=== PATIENT | female | born 1935 | race Caucasian/White ===

== ENCOUNTER 2016-05-26 19:55 | Inpatient (IN) | payer MEDICARE, OTHER ==
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
--- NOTE | ~2016-05-26 | DS ---
Discharge Summary [address] [address] NAME: MARCIN LANDEROS : 37 STATUS : DIS IN PAT#: [id number] AGE: 80 ADM/REG DATE : 05/27/16 MR#: [id number] REPORT SERV DATE: 06/04/16 DICTATED BY: RANDAL WRIGHT DATE: 06/03/16 REPORT STATUS : Draft TRANSCRIBED BY: MODMorris DATE: 06/03/16 ADMISSION DATE: 05/27/2016 DISCHARGE DATE: 06/03/2016 DISCHARGE DIAGNOSES: 1. Symptomatic Escherichia coli urinary tract infection. 2. Recurrent urinary tract infections. 3. Voiding dysfunction. 4. Possible normal pressure hydrocephalus. Further Urology outpatient evaluation to be completed. 5. Chronic diarrhea, not evident while hospitalized. 6. Chronic obstructive pulmonary disease. 7. Sleep apnea. 8. Cough. Probably multifactorial related to oropharyngeal dysphagia, gastroesophageal reflux, and chronic obstructive pulmonary disease. 9. Hypothyroid, on replacement. 10.Mild leukopenia. 11.Chronic anemia. 12.Variable thrombocytopenia. 13.Hyperlipidemia. 14.B12 deficiency, on replacement. 15.Symptomatic axial osteoarthritis. 16.Anxiety and depression, on SSRI therapy. 17.Asymptomatic diverticulosis. 18.Asymptomatic cholelithiasis. 19.Dry eye syndrome. OPERATIONS AND PROCEDURES: None. PRESENT ILLNESS: This is a 80-year-old white female, who was triaged in the emergency room on 05/26/2016 at 1955 hours with complaints of chest pain, weakness, bladder infection, diarrhea, and cough. Her admission vital signs, blood pressure 118/70, temp 97, pulse 65, respirations 16, and O2 saturation 96%. In the emergency room, she was found to have an abnormal urinalysis consistent with urinary tract infection. She was referred to the Hospitalist Service for further evaluation and admission. She was seen by Dr. Tyler Mujica and admitted as described on admission history and physical examination. ADDITIONAL HISTORY: Per Dr. Mujica. PHYSICAL EXAMINATION: Per Dr. Mujica. ADMISSION LABORATORY: Per Dr. Mujica. Discharge Summary [address] [place]. [address] NAME: MARCIN LANDEROS : 37 STATUS : DIS IN PAT#: [id number] AGE: 80 ADM/REG DATE : 05/27/16 MR#: [id number] REPORT SERV DATE: 06/04/16 DICTATED BY: RANDAL WRIGHT DATE: 06/03/16 REPORT STATUS : Draft TRANSCRIBED BY: JHONATAN DATE: 06/03/16 HOSPITAL COURSE: She was admitted by Dr. Mujica with assessment of one urinary tract infection in the setting of the above-mentioned comorbidities. Her hospitalist care was assumed by Dr. Marshall. Her hospitalist care from admission through 05/31/2016 is as outlined on the interim summary dictated by Dr. Marshall. During her hospitalization, she had consultations with Dr. Vlad Madera. His impression was recurrent urinary tract infections with ongoing symptoms of frequency, urgency, incontinence, and dysuria and previous cultures growing E. coli. Antimicrobial therapy was outlined. She was seen in consultation by Dr. Hector Chen. His impression was recurrent urinary tract infections in the setting of some voiding dysfunction with a normal upper tract. He felt that long courses of antibiotics had altered her vaginal elijah and recommended some Estrace cream, vitamin C, and sensitivity-directed antimicrobial therapy. She had a CT scan of her brain during her evaluation. She had large ventricles. She was seen by Dr. Huerta to evaluate normal pressure hydrocephalus. An MRI of her brain showed marked enlargement of the lateral and third ventricles unchanged from CT of 05/27/2016. There was moderate periventricular and subcortical leukoencephalopathy. An MRA of her neck was negative. Further urology outpatient evaluation and treatment was recommended. She was seen by Physical Therapy and Occupational Therapy. Rehab was recommended. She was initially seen by the undersigned after the above-mentioned evaluations on 06/01/2016, 06/02/2016, and 06/03/2016. At that time, her discharge was pending rehab approval and availability. She was approved for [facility] and was thought to be stable for transfer today. Today, she had a prolonged coughing episode after breakfast. She reported this happens not infrequently. A modified barium swallow study was done. No aspiration was seen, but one episode of flash penetration was seen with the first swallow. There was also mild delay and mild residue, but she was able to protect her airway. She was given additional bronchodilator therapy with improvement in her cough and was stable at the time of discharge. She is being discharged to [facility]. Her followup care will be with Dr. Singh. DISCHARGE MEDICATIONS: Pending followup; Coreg 3.125 mg twice daily, Duricef 1000 mg twice daily for 10 further days, B12 at 1000 mcg daily, Restasis eye drops twice daily, Zetia 10 mg daily, Estrace vaginal cream every two days, Zantac 150 mg before breakfast and supper, hydrochlorothiazide 12.5 mg daily, levothyroxine 25 mcg daily, multivitamin daily, omeprazole 20 mg before breakfast and supper, Altace 2.5 mg daily, Zoloft 100 mg daily, Zocor 40 mg daily, Mylanta every 4 hours as needed, Tessalon 100 mg three times daily as Discharge Summary [id number] [place]. [address] NAME: MARCIN LANDEROS : 37 STATUS : DIS IN PAT#: [id number] AGE: 80 ADM/REG DATE : 05/27/16 MR#: [id number] REPORT SERV DATE: 06/04/16 DICTATED BY: RANDAL WRIGHT DATE: 06/03/16 REPORT STATUS : Draft TRANSCRIBED BY: JHONATAN DATE: 06/03/16 needed, Voltaren gel to symptomatic axial OA sites daily as needed, Flonase nasal spray daily, guaifenesin 600 mg every 12 hours, [place] 5/325 twice daily as needed, Zofran 4 mg p.o. or sublingually every 4 hours as needed, MiraLAX 17 g plus Senokot 2 at bedtime as needed, phenazopyridine three times daily as needed, Klonopin 1 mg at bedtime reduced from three times daily, Lasix 20 mg daily as needed, PreserVision one cap twice daily, fish oil 1000 mg daily; Breo Ellipta one puff daily, GenTeal drops twice daily, albuterol nebs every 4 hours as needed. Discharge time greater than 30 minutes. DD/MODL Randal Wright M.D. / [id number] CC: Ness Trammell M.D. [facility]
--- NOTE | ~2016-05-26 | IDS ---
Interim Discharge Summary [facility] [address] [place]. [address] NAME: MARCIN LANDEROS : 37 STATUS : ADM IN [facility]#: [id number] AGE: 80 ADM/REG DATE : 05/27/16 MR#: [id number] REPORT SERV DATE: 05/31/16 DICTATED BY: JOANNEALEXYS ANAYA DATE: 05/31/16 REPORT STATUS : Draft TRANSCRIBED BY: MODL DATE: 05/31/16 ADMISSION DATE: 05/27/2016 DISCHARGE DATE: WORKING DIAGNOSES: 1. Recurrent Escherichia coli urinary tract infection. 2. Urinary incontinence, intermittent. 3. Diarrhea, chronic, but been controlled since admission. 4. Question normal pressure hydrocephalus. 5. Generalized weakness. 6. Hypertension. 7. Cough. CONSULTANTS: 1. Infectious Disease. 2. Urology. 3. Neurology. PROCEDURES: None. HOSPITAL COURSE: This is a 80-year-old lady who was admitted to the hospital with recurrent E. coli urinary tract infections. For details, please refer to excellent H and P by Dr. Mujica. In summary, the patient was admitted and was started on IV Rocephin empirically. Infectious Disease has been involved in her care who suggested getting Urology involved. Dr. Chen of Urology saw the patient and he felt that she did not need any intervention at this time other than use of estrogen cream to restore normal vaginal pH. In the meantime, the urine cultures did come back for E. coli that was sensitive to Ancef. The patient has remained on IV Rocephin over the weekend and it is now being switched to cefadroxil per ID's recommendation. Due to the patient having had complaints of intermittent urinary incontinence along with ataxia and confusions and some headache, possibility of underlying normal-pressure hydrocephalus was raised. CT of the head was performed and it showed ventricular enlargement out of proportion to sulci. Neurology was thus consulted and Neurology recommended getting an MRI of the brain. The MRI of the brain showed marked enlargement of the lateral and third ventricles unchanged from the CT exam. It also showed moderate periventricular and subcortical leukoencephalopathy. Neurology recommended outpatient followup for her symptoms as well as the rehab. In determining disposition, the patient was seen by Physical Therapy who actually recommended a discharge to detention facility. The patient is currently medically ready for discharge and we are awaiting a placement to detention facility with the help of Case Management. Last couple of days, the patient has been complaining of cough. Chest x-ray and lab work was benign, and thus, the patient is being treated symptomatically for her cough at this point in time. Otherwise, no other acute issues. Interim Discharge Summary [address] [place]. [address] NAME: MARCIN LANDEROS : 37 STATUS : ADM IN [facility]#: [id number] AGE: 80 ADM/REG DATE : 05/27/16 MR#: [id number] REPORT SERV DATE: 05/31/16 DICTATED BY: ALEXYS RUBIO DATE: 05/31/16 REPORT STATUS : Draft TRANSCRIBED BY: JHONATAN DATE: 05/31/16 [facility]JH[place] Alexys Rubio MD / [id number] CC: MD Isauro Sears M.D.
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
--- NOTE | ~2016-05-26 | CN ---
Consultation Report [facility] [address] [place]. [address] NAME: MARCIN LANDEROS : 39 STATUS : ADM Daisy PAT#: [id number] AGE: 80 ADM/REG DATE : 05/26/16 MR#: [id number] REPORT SERV DATE: 05/28/16 DICTATED BY: HECTOR LUNA III DATE: 05/27/16 REPORT STATUS : Draft TRANSCRIBED BY: JHONATAN DATE: 05/27/16 CONSULTATION DATE OF CONSULTATION: REASON FOR CONSULT: Recurrent UTIs. HISTORY OF PRESENT ILLNESS: The patient is a 80-year-old white female, I have seen once approximately a month ago. She has a history of recurrent UTIs, E. coli, and enterococcus. When I saw her, she had stated that since October she had been treated with eight or nine different antibiotics and continued to be symptomatic. Her symptoms on admission and in the office was suprapubic pressure frequency and dysuria. She has had no fever and no flank pain. There is no history of stones. She is not sexually active. She denies any surgery in the past. She also has significant urge incontinence that is worse with UTIs. On this admission, it was noted by the daughter that she has had some diarrhea and some confusion. The patient does not recall any of this. According to the notes in the chart, apparently her sister has C. difficile, and I believe a C. difficile study is pending. My recommendations to her in the office on earlier this year included Estrace cream for her vaginal atrophy. This was to help reestablish the Lactobacillus and the pH of the vagina since most of these infections are rectal, vaginal, and bladder. Unfortunately, she did not get the prescription filled. When she was in the office, her postvoid residual was only about 10 mL. The last few mL were grossly purulent. A culture approximately a month before the visit revealed an E. coli sensitive to Macrodantin, cefazolin, aztreonam, piperacillin, and amikacin. PAST MEDICAL HISTORY: Includes COPD, fibromyalgia, and hypertension. She has had hysterectomy. She did have a bladder repair 50 years ago. This was a cystocele and rectocele repair. She has also had a hip repair, vein stripping, and D and C. MEDICATIONS: Reviewed on the chart. ALLERGIES: MORPHINE, MACROBID, PENICILLIN, LEVAQUIN WHICH CAUSES INSOMNIA, AND SEPTRA WHICH CAUSES GI UPSET. SOCIAL HISTORY: Reveals no alcohol or tobacco. FAMILY HISTORY: Positive for heart disease and diabetes. PHYSICAL EXAMINATION: GENERAL: She is alert and oriented. VITAL SIGNS: Pulse was 70, she was afebrile, and blood pressure was 166/70. GENERAL: She is alert, oriented, and eating dinner. HEENT: Unremarkable. NECK: Supple. Consultation Report [address] [place]. [address] NAME: MARCIN LANDEROS : 39 STATUS : ADM Daisy PAT#: [id number] AGE: 80 ADM/REG DATE : 05/26/16 MR#: [id number] REPORT SERV DATE: 05/28/16 DICTATED BY: HECTOR LUNA III DATE: 05/27/16 REPORT STATUS : Draft TRANSCRIBED BY: JHONATAN DATE: 05/27/16 LUNGS: Lung de la cruz were examined and noted to be clear. HEART: Regular rate and rhythm without murmur or gallop. ABDOMEN: Soft. Bowel sounds present and active. There is mild suprapubic tenderness. PELVIC: I did her pelvic exam within the last couple of months and so this was deferred. EXTREMITIES: There is no pedal edema. LABORATORY DATA: Included very inflammatory urine. Electrolytes were normal. White count was 3.8 and hemoglobin was 9.6. Urine culture from 05/05/2016 was an E. coli very similar to the one in January. IMPRESSION: Recurrent urinary tract infections. She is emptying her bladder. There are no upper tract structural issues. She had a normal abdominal and pelvic CT in November. I suspect her problem is one of recurrent infections treated with long courses of antibiotics that have essentially wiped out her vaginal elijah. We did have this discussion in the office about restoring the normal bacterial elijah in the vaginal area. However, I think the patient went to a Pharmacy to purchase Estrace rather than have a compounded. At this point, she will need to be treated probably with IV antibiotics. I would like to have place her on 60 days of nitrofurantoin or Septra; however, she has a number of allergies that include both of these medications. Another option would be Mandelamine as a urinary antiseptic. In addition, urinary acidification with vitamin C may be of some help. I will go ahead and order the estrogen cream and vitamin C for her, and we will await the culture of the current infection. Thank you for the consult. OB/MODL Hector Luna III, M.D. / [id number] CC: MD Isauro Sears M.D.
--- NOTE | ~2016-05-26 | CN ---
Consultation Report [facility] [address] [place]. [address] NAME: MARCIN LANDEROS : 39 STATUS : ADM Daisy PAT#: [id number] AGE: 80 ADM/REG DATE : 05/26/16 MR#: [id number] REPORT SERV DATE: 05/27/16 DICTATED BY: NILE MADERA DATE: 05/27/16 REPORT STATUS : Draft TRANSCRIBED BY: MODL DATE: 05/27/16 INFECTIOUS DISEASE CONSULT DATE OF CONSULTATION: 05/27/2016 REFERRING PHYSICIAN: Dr. Mujica. REASON FOR CONSULTATION: Recurrent UTIs along with recent diarrhea. HISTORY OF PRESENT ILLNESS: This is a 80-year-old female with a past medical history notable for various chronic medical conditions as outlined below. She states though that her present trouble really began last October when she had a diarrheal illness and then after that developed a UTI. She says she has been plagued by persistent/recurrent urinary tract infections since then. The patient has taken a number of courses of outpatient antibiotics. The patient has been managed by her primary care physician, Dr. Singh along with being seen by Dr. Chen of Urology. I am not sure of the details of her outpatient evaluation. Most recently, the patient finished her last course of oral antibiotics, which according to the patient's pharmacy, was doxycycline last week she says after about 10 days of treatment. She says it really did not help her symptoms. She continues to have symptoms of urinary frequency, nocturia, urgency, incontinence, and dysuria. She also feels just weak and tired. In addition, earlier this week, she developed some mild loose stools, maybe three bowel movements a day, not watery, without any associated abdominal pain or cramping. She has had no loose stools since her admission to the hospital last night. She was instructed to go to the emergency department, she says, by the primary care office yesterday, where she was found to have a normal white blood cell count, but marked pyuria on urinalysis. Because of the concern though about her recent diarrhea and possible C difficile, she has not yet been started on antibiotics. The patient denies any flank pain or back pain. In reviewing the pharmacy records, she took a course of doxycycline in April and in January and took cephalexin in March. PAST MEDICAL HISTORY: Notable for coronary artery disease, obstructive sleep apnea, allergic rhinitis, anemia, chronic anxiety, arthritis, cataracts, depression, hyperlipidemia, hypertension, hypothyroidism, and osteoarthritis. ALLERGIES: PENICILLIN CAUSED A RASH SOME YEARS AGO. THE PATIENT STATES THAT NITROFURANTOIN ALMOST KILLED HER WITH A SEVERE ACUTE REACTION, BUT DETAILS ARE NOT CLEAR. SHE ALSO IS INTOLERANT APPARENTLY OF BACTRIM AND ALSO CANNOT TAKE LEVOFLOXACIN WHICH CAUSED THE SLEEPING PROBLEMS FOR SOME TIME. MORPHINE CAUSES ITCHING. MEDICATIONS: Outpatient medications are reviewed and include ProAir, Coreg, clonazepam, vitamin B12, Colace, Zetia, Flonase, fluticasone/vilanterol inhaler, furosemide, Wilkinson p.r.n., levothyroxine, multivitamins, naproxen, omega-3 fatty acids, omeprazole, Pyridium, MiraLAX, Altace, ranitidine, Zoloft, Zocor, and other vitamins. Consultation Report [address] [place]. [address] NAME: MARCIN LANDEROS : 39 STATUS : ADM Daisy PAT#: [id number] AGE: 80 ADM/REG DATE : 05/26/16 MR#: [id number] REPORT SERV DATE: 05/27/16 DICTATED BY: NILE MADERA DATE: 05/27/16 REPORT STATUS : Draft TRANSCRIBED BY: JHONATAN DATE: 05/27/16 SOCIAL HISTORY: The patient lives alone. Daughters check on her regularly. Nonsmoker, nondrinker. FAMILY HISTORY: Notable for diabetes and heart disease. REVIEW OF SYSTEMS: As outlined above. In addition, no significant fevers, chills. She does have some forgetfulness at times. She has had some episodic falls over the past few weeks including last weekend in her living room and two weeks ago in her bedroom, where she says she "blacked out." No easy bruising or bleeding. PHYSICAL EXAMINATION: VITAL SIGNS: Patient weighs 83 kg. She is afebrile. Blood pressure 159/67, pulse 61, respiratory rate 14. GENERAL: She is alert, sitting up in a chair. No acute distress. HEAD AND NECK: Extraocular movements intact. The oral cavity shows no thrush. NECK: Supple. LUNGS: Clear to auscultation anteriorly. CARDIAC: Regular rate and rhythm. Normal S1, S2 without murmur, gallop, or rub. ABDOMEN: Shows normoactive bowel sounds. Soft, nondistended, nontender. EXTREMITIES: Without edema. SKIN: Without rash. LABORATORY STUDIES: White blood cell count today 3.8, hemoglobin 9.6, platelets 153. Creatinine 0.90. Albumin 3.2. Liver function tests normal. Urinalysis shows large leukocyte esterase, positive nitrite, greater than 182 white blood cells, many white blood cell clumps. Urine culture from last night is growing greater than 100,000 colonies of a gram-negative romy. Previous urine cultures in April, February, January, November, and October have grown E coli, which is most recently resistant to sulfa, quinolones, and gentamicin. Sensitive to cefazolin with an JOHN of 8. She did grow enterococcus once back in late 12/2015. Blood cultures negative to date. Chest x-ray negative. IMPRESSION: Recurrent urinary tract infections with ongoing symptoms of frequency, urgency, incontinence, and dysuria with many previous cultures growing an Escherichia coli. She had some mild diarrhea earlier this week, but none in the hospital here and I doubt Clostridium difficile. The patient has been evaluated by Dr. Chen of Urology, but I am not sure what the outpatient workup has included. PLAN: 1. Pending the final results of the urine culture from last night, I will begin ceftriaxone. 2. We will ask Dr. Chen to reassess. Consultation Report [address] [place]. [address] NAME: MARCIN LANDEROS : 39 STATUS : ADM Daisy PAT#: [id number] AGE: 80 ADM/REG DATE : 05/26/16 MR#: [id number] REPORT SERV DATE: 05/27/16 DICTATED BY: NILE MADERA DATE: 05/27/16 REPORT STATUS : Draft TRANSCRIBED BY: JHONATAN DATE: 05/27/16 /JHONATAN Nile Madera M.D. / [id number] CC: MD Isauro Sears M.D. Oliver Benton III, M.D.
[~2016-05-26 19:55] MED LIST: CALTRA600D PO; CLEAR EYES OPH; CYANO1000T PO; DSS PO; FISH OIL1200 MG PO; FLUID PILL; KLONO2 PO; KLOR-CON M2020 MEQ PO; L20 PO; LIDODERM T; LORTAB 5 PO; METHOC750B PO; MULTIPLE VIT PO; MULTIVITAMI1 PO; MYLANTA DS OR; NAP500 PO; OTC LAXATIVE PO; PREM625 PO; PRILO PO; PRIN5 PO; RESTASIS OPH; SYN.025B PO; SYN125 PO; VITAMIN B-121000 MC1 SL; ZESTRIL2.5 MG PO; ZETIA PO; ZOCOR40 PO; ZOL100 PO; ZOL50 PO; [UNRECOGNIZED DRUG - REMARK]
[2016-05-26 20:37] LABS: BASOPHILS 0.1 %; BASOPHILS ABSOLUTE 0.01 10/3/uL (0.0-0.16); EOSINOPHILS 1.8 %; EOSINOPHILS ABSOLUTE 0.12 10/3/uL (0.0-0.53); ER CBC TAT 0 Hrs 03 Mins; HEMATOCRIT 29.8 % (36.0-48.0); HEMOGLOBIN 10.2 g/dL (12.0-16.0); IMMATURE GRANULOCYTES 0.3 %; IMMATURE GRANULOCYTES ABSOLUTE 0.02 10/3/uL (0.0-0.11); LYMPHOCYTES 11.7 %; LYMPHOCYTES ABSOLUTE 0.79 10/3/uL (0.67-4.30); MANUAL DIFF NO %; MEAN CORPUS HGB CONC 34.2 g/dL (32.0-36.0); MEAN CORPUSCULAR HEMOGLOB 30.1 pg (26.0-34.0); MEAN CORPUSCULAR VOLUME 87.9 fL (80-100); MEAN PLATELET VOLUME 8.5 fL (9.2-13.0); MONOCYTES 7.1 %; MONOCYTES ABSOLUTE 0.48 10/3/uL (0.21-1.20); NEUTROPHILS ABSOLUTE 5.35 10/3/uL (2.02-8.40); PLATELET COUNT 177 10/3/uL (150-400); RBC DISTRIBUTION WIDTH 14.3 % (12.0-16.0); RED CELL COUNT 3.39 10/6/uL (4.0-5.6); WHITE BLOOD CELLS 6.8 10/3/uL (4.5-10.5)
[2016-05-26 20:45] LABS: PARTIAL THROMBO TIME 25.8 SEC (22.5-37.2); PROTIME (NOT ORD) 13.4 SEC (12.0-14.5)
[2016-05-26 20:56] LABS: BUN (BLOOD UREA NITROGEN) 21 MG/DL (6-23); CALCIUM, SERUM 8.4 MG/DL (8.5-10.4); CHEST PAIN PROFILE TAT 0 Hrs 22 Mins; CHLORIDE, SERUM 104 MMOL/L (96-112); CO2 (CARBON DIOXIDE) 25 MMOL/L (24-34); CREATININE 1.21 MG/DL (0.55-1.02); GFR AFRICAN AMERICAN 50 ML/MIN (>=60); GFR NON AFRICAN AMERICAN 43 ML/MIN (>=60); POTASSIUM, SERUM 4.2 MMOL/L (3.5-5.3); TROPONIN I <0.02 NG/ML (<0.05)
[2016-05-26 20:57] LABS: GLUCOSE, SERUM 110 MG/DL (60-99); SODIUM, SERUM 139 MMOL/L (135-148)
[2016-05-26 22:58] LABS: ASCORBIC ACID (UR NOT ORDER) 40 (NEG); BILIRUBIN, URINE NEGATIVE (NEG); ER URINALYSIS TAT 0 Hrs 07 Mins; KETONE, URINE TRACE MG/DL (NEG); LEUKOCYTE ESTERASE(NOT OR MOD (NEG); NITRITE (URINE) POS (NEG); WBC (NOT ORDERED) (RFLEX) > 182 (0-5)
[2016-05-26] MEDS ORDERED: ALTA2.5 PO (23:52)
[2016-05-26] MEDS ORDERED: KLONO1 PO (23:52)
[2016-05-26] MEDS ORDERED: COREG3 PO (23:52)
[2016-05-26] MEDS ORDERED: VOLTAREN1 % TOP (23:53)
[2016-05-26] MEDS ORDERED: ZETIA PO (23:54)
[2016-05-26] MEDS ORDERED: FLONASE NAS (23:54)
[2016-05-26] MEDS ORDERED: LEVOTHYROXIN25 MCG PO (23:55)
[2016-05-26] MEDS ORDERED: NORCO1 TA1 PO (23:55)
[2016-05-26] MEDS ORDERED: NAP500 PO (23:55)
[2016-05-26] MEDS ORDERED: L20 PO (23:55)
[2016-05-26] MEDS ORDERED: THERGRANM PO (23:55)
[2016-05-26] MEDS ORDERED: RESTASIS OPH (23:56)
[2016-05-26] MEDS ORDERED: ZOL100 PO (23:56)
[2016-05-26] MEDS ORDERED: ZANTAC 150 PO (23:56)
[2016-05-26] MEDS ORDERED: PYR200 PO (23:56)
[2016-05-26] MEDS ORDERED: PRESERVISION A1 EAC1 PO (23:57)
[2016-05-26] MEDS ORDERED: CYANO1000T PO (23:57)
[2016-05-26] MEDS ORDERED: DSS PO (23:57)
[2016-05-26] MEDS ORDERED: FISH-EPA1000 MG PO (23:57)
[2016-05-26] MEDS ORDERED: ZOCOR40 PO (23:57)
[2016-05-26] MEDS ORDERED: MIRALAX POWDER1 PKT PO (23:58)
[2016-05-26] MEDS ORDERED: PRILO PO (23:58)
[2016-05-26] MEDS ORDERED: BREO ELLIPTA INH (23:58)
[2016-05-26] MEDS ORDERED: PROAIR HFA INH (23:58)
[2016-05-26] MEDS ORDERED: GENTEAL OPH (23:58)
[2016-05-27 06:46] LABS: ASCORBIC ACID (UR NOT ORDER) NEG (NEG); BILIRUBIN, URINE NEGATIVE (NEG); KETONE, URINE NEGATIVE (NEG); LEUKOCYTE ESTERASE(NOT OR LARGE (NEG)
[2016-05-27 06:47] LABS: WBC (NOT ORDERED) (RFLEX) > 182 (0-5)
[2016-05-27 08:23] LABS: BASOPHILS 0.5 %; BASOPHILS ABSOLUTE 0.02 10/3/uL (0.0-0.16); EOSINOPHILS 3.7 %; EOSINOPHILS ABSOLUTE 0.14 10/3/uL (0.0-0.53); HEMATOCRIT 27.9 % (36.0-48.0); HEMOGLOBIN 9.6 g/dL (12.0-16.0); IMMATURE GRANULOCYTES 0.3 %; IMMATURE GRANULOCYTES ABSOLUTE 0.01 10/3/uL (0.0-0.11); LYMPHOCYTES 21.8 %; LYMPHOCYTES ABSOLUTE 0.83 10/3/uL (0.67-4.30); MEAN CORPUS HGB CONC 34.4 g/dL (32.0-36.0); MEAN CORPUSCULAR VOLUME 87.2 fL (80-100); MEAN PLATELET VOLUME 8.5 fL (9.2-13.0); MONOCYTES 9.2 %; MONOCYTES ABSOLUTE 0.35 10/3/uL (0.21-1.20); NEUTROPHILS 64.5 %; NEUTROPHILS ABSOLUTE 2.46 10/3/uL (2.02-8.40); PLATELET COUNT 153 10/3/uL (150-400); RBC DISTRIBUTION WIDTH 14.3 % (12.0-16.0)
[2016-05-27 08:26] LABS: MANUAL DIFF NO %; WHITE BLOOD CELLS 3.8 10/3/uL (4.5-10.5)
[2016-05-27 09:10] LABS: SED RATE 29 MM/HR (0-20)
[2016-05-27 09:14] LABS: A/G RATIO 0.9 (0.7-1.9); ALBUMIN 3.2 G/DL (3.5-5.0); ALKALINE PHOSPHATASE 72 U/L (45-117); CALCIUM, SERUM 8.5 MG/DL (8.5-10.4); CHLORIDE, SERUM 107 MMOL/L (96-112); CO2 (CARBON DIOXIDE) 24 MMOL/L (24-34); CPK 41 U/L (0-200); FREE T4 0.96 NG/DL (0.76-1.46); GFR AFRICAN AMERICAN 71 ML/MIN (>=60); GFR NON AFRICAN AMERICAN 61 ML/MIN (>=60); GLOBULIN 3.4 G/DL (2.5-4.1); SGOT(AST) 17 U/L (5-40); SGPT(ALT) 21 U/L (5-65); SODIUM, SERUM 141 MMOL/L (135-148); TOTAL BILIRUBIN 0.3 MG/DL (0-1.2); TOTAL PROTEIN 6.6 G/DL (6.0-8.5); TROPONIN I <0.02 NG/ML (<0.05)
[2016-05-27 09:15] LABS: BUN (BLOOD UREA NITROGEN) 17 MG/DL (6-23); FOLATE 51.5 NG/ML (>5.2); GLUCOSE, SERUM 82 MG/DL (60-99)
[2016-05-27 09:52] LABS: PROCALCITONIN <0.05 ng/mL (<0.5)
[2016-05-28 06:55] LABS: BASOPHILS 0.3 %; BASOPHILS ABSOLUTE 0.01 10/3/uL (0.0-0.16); EOSINOPHILS 6.5 %; EOSINOPHILS ABSOLUTE 0.19 10/3/uL (0.0-0.53); HEMATOCRIT 26.7 % (36.0-48.0); IMMATURE GRANULOCYTES 0.3 %; IMMATURE GRANULOCYTES ABSOLUTE 0.01 10/3/uL (0.0-0.11); LYMPHOCYTES 28.2 %; LYMPHOCYTES ABSOLUTE 0.83 10/3/uL (0.67-4.30); MEAN CORPUS HGB CONC 33.7 g/dL (32.0-36.0); MEAN CORPUSCULAR HEMOGLOB 30.2 pg (26.0-34.0); MEAN CORPUSCULAR VOLUME 89.6 fL (80-100); MEAN PLATELET VOLUME 8.4 fL (9.2-13.0); MONOCYTES 8.8 %; MONOCYTES ABSOLUTE 0.26 10/3/uL (0.21-1.20); NEUTROPHILS 55.9 %; NEUTROPHILS ABSOLUTE 1.64 10/3/uL (2.02-8.40); PLATELET COUNT 149 10/3/uL (150-400); RBC DISTRIBUTION WIDTH 14.4 % (12.0-16.0); RED CELL COUNT 2.98 10/6/uL (4.0-5.6); WHITE BLOOD CELLS 2.9 10/3/uL (4.5-10.5)
[2016-05-28 06:56] LABS: MANUAL DIFF NO %
[2016-05-28 06:59] LABS: BUN (BLOOD UREA NITROGEN) 14 MG/DL (6-23); CALCIUM, SERUM 8.2 MG/DL (8.5-10.4); CHLORIDE, SERUM 110 MMOL/L (96-112); CO2 (CARBON DIOXIDE) 22 MMOL/L (24-34); CREATININE 0.89 MG/DL (0.55-1.02); GFR AFRICAN AMERICAN 72 ML/MIN (>=60); GFR NON AFRICAN AMERICAN 62 ML/MIN (>=60); GLUCOSE, SERUM 88 MG/DL (60-99); SODIUM, SERUM 142 MMOL/L (135-148)
[2016-05-29 07:00] LABS: BASOPHILS 0.6 %; BASOPHILS ABSOLUTE 0.02 10/3/uL (0.0-0.16); EOSINOPHILS 6.5 %; EOSINOPHILS ABSOLUTE 0.23 10/3/uL (0.0-0.53); HEMATOCRIT 26.4 % (36.0-48.0); IMMATURE GRANULOCYTES 0.6 %; IMMATURE GRANULOCYTES ABSOLUTE 0.02 10/3/uL (0.0-0.11); LYMPHOCYTES 20.3 %; LYMPHOCYTES ABSOLUTE 0.72 10/3/uL (0.67-4.30); MEAN CORPUS HGB CONC 34.1 g/dL (32.0-36.0); MEAN CORPUSCULAR HEMOGLOB 30.2 pg (26.0-34.0); MEAN CORPUSCULAR VOLUME 88.6 fL (80-100); MEAN PLATELET VOLUME 8.4 fL (9.2-13.0); MONOCYTES 7.3 %; MONOCYTES ABSOLUTE 0.26 10/3/uL (0.21-1.20); NEUTROPHILS 64.7 %; PLATELET COUNT 147 10/3/uL (150-400); RBC DISTRIBUTION WIDTH 14.5 % (12.0-16.0); RED CELL COUNT 2.98 10/6/uL (4.0-5.6); WHITE BLOOD CELLS 3.6 10/3/uL (4.5-10.5)
[2016-05-29 07:04] LABS: MANUAL DIFF NO %
[2016-05-29 07:19] LABS: A/G RATIO 0.8 (0.7-1.9); ALBUMIN 2.8 G/DL (3.5-5.0); ALKALINE PHOSPHATASE 65 U/L (45-117); BUN (BLOOD UREA NITROGEN) 11 MG/DL (6-23); CALCIUM, SERUM 8.4 MG/DL (8.5-10.4); CHLORIDE, SERUM 112 MMOL/L (96-112); CO2 (CARBON DIOXIDE) 23 MMOL/L (24-34); GFR AFRICAN AMERICAN 96 ML/MIN (>=60); GFR NON AFRICAN AMERICAN 83 ML/MIN (>=60); GLOBULIN 3.4 G/DL (2.5-4.1); GLUCOSE, SERUM 93 MG/DL (60-99); POTASSIUM, SERUM 3.8 MMOL/L (3.5-5.3); SGOT(AST) 16 U/L (5-40); SGPT(ALT) 15 U/L (5-65); SODIUM, SERUM 145 MMOL/L (135-148); TOTAL BILIRUBIN 0.5 MG/DL (0-1.2); TOTAL PROTEIN 6.2 G/DL (6.0-8.5)
[2016-05-29 16:40] LABS: FOLATE 32.2 NG/ML (>5.2)
[2016-06-01 04:53] LABS: BASOPHILS 0.3 %; BASOPHILS ABSOLUTE 0.01 10/3/uL (0.0-0.16); EOSINOPHILS ABSOLUTE 0.13 10/3/uL (0.0-0.53); HEMOGLOBIN 10.2 g/dL (12.0-16.0); IMMATURE GRANULOCYTES 0.3 %; IMMATURE GRANULOCYTES ABSOLUTE 0.01 10/3/uL (0.0-0.11); LYMPHOCYTES 21.4 %; MEAN CORPUS HGB CONC 34.6 g/dL (32.0-36.0); MEAN CORPUSCULAR HEMOGLOB 30.5 pg (26.0-34.0); MEAN CORPUSCULAR VOLUME 88.3 fL (80-100); MEAN PLATELET VOLUME 8.3 fL (9.2-13.0); MONOCYTES 13.8 %; MONOCYTES ABSOLUTE 0.45 10/3/uL (0.21-1.20); NEUTROPHILS 60.2 %; NEUTROPHILS ABSOLUTE 1.97 10/3/uL (2.02-8.40); PLATELET COUNT 169 10/3/uL (150-400); RBC DISTRIBUTION WIDTH 14.6 % (12.0-16.0); RED CELL COUNT 3.34 10/6/uL (4.0-5.6); WHITE BLOOD CELLS 3.3 10/3/uL (4.5-10.5)
[2016-06-01 04:55] LABS: HEMATOCRIT 29.5 % (36.0-48.0); MANUAL DIFF NO %
[2016-06-01 04:57] LABS: CALCIUM, SERUM 9.3 MG/DL (8.5-10.4); CHLORIDE, SERUM 105 MMOL/L (96-112); CO2 (CARBON DIOXIDE) 27 MMOL/L (24-34); CREATININE 0.83 MG/DL (0.55-1.02); GFR AFRICAN AMERICAN 78 ML/MIN (>=60); GFR NON AFRICAN AMERICAN 68 ML/MIN (>=60); GLUCOSE, SERUM 90 MG/DL (60-99); SODIUM, SERUM 140 MMOL/L (135-148)
[2016-06-01 05:00] LABS: BUN (BLOOD UREA NITROGEN) 17 MG/DL (6-23)
[2016-06-01 06:43] LABS: PROCALCITONIN <0.05 ng/mL (<0.5)
[2016-06-02 16:41] LABS: BASOPHILS 0.5 %; BASOPHILS ABSOLUTE 0.02 10/3/uL (0.0-0.16); EOSINOPHILS 2.1 %; EOSINOPHILS ABSOLUTE 0.09 10/3/uL (0.0-0.53); HEMATOCRIT 30.3 % (36.0-48.0); HEMOGLOBIN 10.6 g/dL (12.0-16.0); IMMATURE GRANULOCYTES 0.2 %; IMMATURE GRANULOCYTES ABSOLUTE 0.01 10/3/uL (0.0-0.11); LYMPHOCYTES 16.7 %; MANUAL DIFF NO %; MEAN CORPUSCULAR HEMOGLOB 30.9 pg (26.0-34.0); MEAN CORPUSCULAR VOLUME 88.3 fL (80-100); MEAN PLATELET VOLUME 8.7 fL (9.2-13.0); MONOCYTES 6.9 %; MONOCYTES ABSOLUTE 0.29 10/3/uL (0.21-1.20); NEUTROPHILS 73.6 %; NEUTROPHILS ABSOLUTE 3.08 10/3/uL (2.02-8.40); PLATELET COUNT 179 10/3/uL (150-400); RBC DISTRIBUTION WIDTH 14.8 % (12.0-16.0); RED CELL COUNT 3.43 10/6/uL (4.0-5.6); WHITE BLOOD CELLS 4.2 10/3/uL (4.5-10.5)
[2016-06-02 16:59] LABS: ALKALINE PHOSPHATASE 74 U/L (45-117); CHLORIDE, SERUM 103 MMOL/L (96-112); CO2 (CARBON DIOXIDE) 28 MMOL/L (24-34); CREATININE 0.89 MG/DL (0.55-1.02); GFR AFRICAN AMERICAN 72 ML/MIN (>=60); GFR NON AFRICAN AMERICAN 62 ML/MIN (>=60); GLUCOSE, SERUM 93 MG/DL (60-99); POTASSIUM, SERUM 4.1 MMOL/L (3.5-5.3); SGOT(AST) 34 U/L (5-40); SGPT(ALT) 40 U/L (5-65); SODIUM, SERUM 138 MMOL/L (135-148); TOTAL BILIRUBIN 0.3 MG/DL (0-1.2)
[2016-06-02 17:00] LABS: A/G RATIO 0.9 (0.7-1.9); ALBUMIN 3.6 G/DL (3.5-5.0); BUN (BLOOD UREA NITROGEN) 22 MG/DL (6-23); GLOBULIN 3.9 G/DL (2.5-4.1); TOTAL PROTEIN 7.5 G/DL (6.0-8.5)
== END 2016-06-03 14:29 | DRG 690 ==
LOC: ER 19:55 → 6NO 21:00
PROVIDERS: Emergency Medicine; Internal Medicine; Student in an Organized Health Care Education/Training Program
DX: N39.0 Urinary tract infection, site not specified (principal); D61.818 Other pancytopenia; G91.2 (Idiopathic) normal pressure hydrocephalus; J44.9 Chronic obstructive pulmonary disease, unspecified; R13.12 Dysphagia, oropharyngeal phase; D69.6 Thrombocytopenia, unspecified; B96.20 Unspecified Escherichia coli [E. coli] as the cause of diseases classified elsewhere; R19.7 Diarrhea, unspecified; K21.9 Gastro-esophageal reflux disease without esophagitis; E03.9 Hypothyroidism, unspecified; E78.00 Pure hypercholesterolemia, unspecified; D64.9 Anemia, unspecified; E53.8 Deficiency of other specified B group vitamins; M19.90 Unspecified osteoarthritis, unspecified site; H04.129 Dry eye syndrome of unspecified lacrimal gland; G47.33 Obstructive sleep apnea (adult) (pediatric); G47.10 Hypersomnia, unspecified; F41.9 Anxiety disorder, unspecified; F32.9 Major depressive disorder, single episode, unspecified; V89.2XXS Person injured in unspecified motor-vehicle accident, traffic, sequela; M21.70 Unequal limb length (acquired), unspecified site; R26.89 Other abnormalities of gait and mobility; K80.20 Calculus of gallbladder without cholecystitis without obstruction; R35.0 Frequency of micturition; N39.41 Urge incontinence; I10 Essential (primary) hypertension; R05 Cough; Z77.22 Contact with and (suspected) exposure to environmental tobacco smoke (acute) (chronic); Z87.440 Personal history of urinary (tract) infections; Z91.81 History of falling; Z88.1 Allergy status to other antibiotic agents; Z88.5 Allergy status to narcotic agent; Z88.0 Allergy status to penicillin
CPT/HCPCS: 70450; 70544; 70547; 70551; 71010; 71020; 74230; 80048; 80053; 81001; 82306; 82550; 82607; 82746; 83735; 84145; 84439; 84443; 84484; 85025; 85610; 85652; 85730; 86140; 87040; 87077; 87086; 87186; 87493; 87493-59; 92611-GN; 93005; 94640; 97110-GP; 97116-GP; 97161-GP; 97165-GO; 97530-GP; 99285; A9270-GY; G8978-CK-GP; G8979-CI-GP; G8987-CJ-GO; G8988-CJ-GO; G8989-CJ-GO; G8996-CJ-GN; G8997-CJ-GN; G8998-CJ-GN; J0360

== ENCOUNTER 2016-10-27 20:25 | Emergency (ER) | payer MEDICARE, OTHER ==
[~2016-10-27 20:25] MED LIST changes: +ALTA2.5 PO; +BREO ELLIPTA INH; +COREG3 PO; +FISH-EPA1000 MG PO; +FLONASE NAS; +GENTEAL OPH; +KLONO1 PO; +LEVOTHYROXIN25 MCG PO; +MIRALAX POWDER1 PKT PO; +NORCO1 TA1 PO; +PRESERVISION A1 EAC1 PO; +PROAIR HFA INH; +PYR200 PO; +THERGRANM PO; +VOLTAREN1 % TOP; +ZANTAC 150 PO
[2016-10-27 21:22] LABS: BASOPHILS 0.2 %; BASOPHILS ABSOLUTE 0.01 10/3/uL (0.0-0.16); EOSINOPHILS 1.4 %; EOSINOPHILS ABSOLUTE 0.07 10/3/uL (0.0-0.53); ER CBC TAT 0 Hrs 05 Mins; HEMATOCRIT 29.1 % (36.0-48.0); HEMOGLOBIN 9.6 g/dL (12.0-16.0); IMMATURE GRANULOCYTES 0.2 %; IMMATURE GRANULOCYTES ABSOLUTE 0.01 10/3/uL (0.0-0.11); LYMPHOCYTES 18.6 %; LYMPHOCYTES ABSOLUTE 0.96 10/3/uL (0.67-4.30); MEAN CORPUSCULAR HEMOGLOB 31.1 pg (26.0-34.0); MEAN PLATELET VOLUME 8.7 fL (9.2-13.0); MONOCYTES 6.6 %; MONOCYTES ABSOLUTE 0.34 10/3/uL (0.21-1.20); NEUTROPHILS ABSOLUTE 3.77 10/3/uL (2.02-8.40); PLATELET COUNT 192 10/3/uL (150-400); RBC DISTRIBUTION WIDTH 15.6 % (12.0-16.0); RED CELL COUNT 3.09 10/6/uL (4.0-5.6); WHITE BLOOD CELLS 5.2 10/3/uL (4.5-10.5)
[2016-10-27 21:23] LABS: MANUAL DIFF NO %; MEAN CORPUSCULAR VOLUME 94.2 fL (80-100)
[2016-10-27 21:29] LABS: PARTIAL THROMBO TIME 25.3 SEC (22.5-37.2); PROTIME (NOT ORD) 13.2 SEC (12.0-14.5)
[2016-10-27 21:39] LABS: BUN (BLOOD UREA NITROGEN) 20 MG/DL (6-23); CALCIUM, SERUM 9.3 MG/DL (8.5-10.4); CHEST PAIN PROFILE TAT 0 Hrs 22 Mins; CHLORIDE, SERUM 111 MMOL/L (96-112); CO2 (CARBON DIOXIDE) 25 MMOL/L (24-34); GFR AFRICAN AMERICAN 62 ML/MIN (>=60); GFR NON AFRICAN AMERICAN 54 ML/MIN (>=60); GLUCOSE, SERUM 114 MG/DL (60-99); POTASSIUM, SERUM 4.4 MMOL/L (3.5-5.3); SODIUM, SERUM 141 MMOL/L (135-148); TROPONIN I <0.02 NG/ML (<0.05)
[2016-10-27 21:41] LABS: ASCORBIC ACID (UR NOT ORDER) 40 (NEG); BILIRUBIN, URINE NEGATIVE (NEG); ER URINALYSIS TAT 0 Hrs 24 Mins; KETONE, URINE NEGATIVE (NEG); LEUKOCYTE ESTERASE(NOT OR MOD (NEG); NITRITE (URINE) POS (NEG); WBC (NOT ORDERED) (RFLEX) > 182 (0-5)
== END 2016-10-28 03:02 | disposition home or self-care (01) ==
LOC: ER 20:25
PROVIDERS: Emergency Medicine
DX: S70.02XA Contusion of left hip, initial encounter (principal); W18.30XA Fall on same level, unspecified, initial encounter; Y92.008 Other place in unspecified non-institutional (private) residence as the place of occurrence of the external cause; J44.9 Chronic obstructive pulmonary disease, unspecified; I10 Essential (primary) hypertension; E11.9 Type 2 diabetes mellitus without complications; D64.9 Anemia, unspecified; Z88.5 Allergy status to narcotic agent; Z88.2 Allergy status to sulfonamides; Z88.0 Allergy status to penicillin; Z88.1 Allergy status to other antibiotic agents; Z88.8 Allergy status to other drugs, medicaments and biological substances; Z79.899 Other long term (current) drug therapy
CPT/HCPCS: 72192; 73502-LT; 80048; 81001; 83735; 84484; 85025; 85610; 85730; 87077; 87086; 87186; 93005; 99284; A9270-GY